=== PATIENT | female | born 1960 ===

== ENCOUNTER 2022-11-10 09:26 | Outpatient (CLI) | payer BC, SELFPAY ==
--- NOTE | ~2022-11-10 | DEXA_ITS ---
Bone Density Report Name: MAVIS GREER Age: 62 Sex: Female Ethnicity: White Date of : 1960 Indication: hyperparathyroidism; height loss; postmenopausal Referring Provider: DEYA FAIR Study: Bone densitometry was performed. Exam Date: November 10, 2022 Accession number: [id number] Bone Density: Region BMD T-score Z-score Classification AP Spine(L1-L4) 0.920 -1.2 0.4 Osteopenia Femoral Neck (Left) 0.888 0.3 1.7 Normal Total Hip (Left) 0.972 0.2 1.3 Normal Femoral Neck (Right) 0.849 0.0 1.4 Normal Total Hip (Right) 0.987 0.4 1.5 Normal Total Hip Mean 0.980 0.3 1.4 Normal World Health Organization criteria for BMD impression classify patients as: Normal (T-score at or above -1.0), Osteopenia (T-score between -1.0 and -2.5), or Osteoporosis (T-score at or below -2.5). 10-year Fracture Risk(1): Major Osteoporotic Fracture 6.5% Hip Fracture 0.2% Reported Risk Factors: [place] (), Neck BMD=0.849, BMI=27.3 (1) FRAX(R) Version 3.08. Fracture probability calculated for an untreated patient. Fracture probability may be lower if the patient has received treatment. Clinical Information Provided by Patient: Has the following medical conditions: Hyperparathyroidism Patient maximum height was 65 Menopause Age: 48 Onset of menses at age 12 Number of children 0 Impression: The patient has low bone mass, based on the Total Spine T-score. The patient has an estimated ten-year risk of hip fracture of 0.2% and an estimated ten-year risk of major fracture of 6.5%, based on the WHO FRAX algorithm. Discussion: BONE DENSITY IS LOW AT ONE OR MORE SKELETAL SITES. This patient's lowest T-score is low at one or more skeletal sites. It meets the World Health Organization's (WHO) criteria for ?low bone mass? (T-score between -1.0 and -2.5). The patient's 10-year risk of fracture as calculated by FRAX is less than the threshold where pharmacological therapy is recommended by the National Osteoporosis Foundation (NOF). However, all treatment decisions require clinical judgment and consideration of individual patient factors, including patient preferences, comorbidities, previous drug use, risk factors not captured in the FRAX model (e.g., frailty, falls, vitamin D deficiency, increased bone turnover, interval significant decline in bone density) and possible under or overestimation of fracture risk by FRAX. The patient should follow a healthful lifestyle (good nutrition with adequate calcium and vitamin D, and appropriate weight-bearing exercise). Follow-Up: Consider repeating this study in 2 to 3 years to reassess this patient's status, or sooner if there is some new clinical indication. Reported by: [facility] on 11/10/2022 9:52:00 AM.
== END 2022-11-10 09:27 | disposition home or self-care (01) ==
PROVIDERS: PCP Family Medicine Adolescent Medicine; Visit Provider Internal Medicine Endocrinology, Diabetes & Metabolism
DX: Z78.0 Asymptomatic menopausal state (principal); M85.88 Other specified disorders of bone density and structure, other site
CPT/HCPCS: 77080